=== PATIENT | female | born 1935 | race Caucasian/White ===

== ENCOUNTER 2018-11-17 11:27 | Inpatient (IN) | payer OTHER ==
[~2018-11-17] VITALS: Ht 162.6 cm; Wt 56.6 kg
[2018-11-17 11:29] VITALS: BP 149/77
[2018-11-17 12:28] LABS: ABSOLUTE NEUTROPHILS 8.9 thou/uL (1.4-8.2); BASOPHILS 0.4 % (0.0-2.0); EOSINOPHILS 2.1 % (0.0-3.0); HEMOGLOBIN 14.1 gm/dL (12.0-15.0); LYMPHOCYTES 24.5 % (24.0-44.0); MCH 31.9 pg (26.0-34.0); MCHC 34.4 g/dL (28.0-37.0); MCV 92.6 fL (80.0-100.0); MONOCYTES 5.1 % (1.0-8.0); PLATELET COUNT 275 thou/uL (150-400); POLYS 67.9 % (36.0-66.0); RBC 4.43 mil/uL (4.20-5.00); WBC 13.1 thou/uL (4.0-11.0)
[2018-11-17 12:36] LABS: CALCIUM 9.7 mg/dL (8.5-10.1); CREATININE 1.2 mg/dL (0.6-1.0); POTASSIUM 4.1 mmol/L (3.5-5.1)
[2018-11-17 12:42] LABS: ALBUMIN 3.8 g/dL (3.4-5.0); TOTAL BILIRUBIN 0.3 mg/dL (<0.1-1.0); TOTAL PROTEIN 7.8 g/dL (6.4-8.2)
[2018-11-17 13:09] LABS: URINE BILIRUBIN NEGATIVE (Negative); URINE BLOOD NEGATIVE (Negative); URINE CLARITY CLEAR; URINE COLOR YELLOW; URINE GLUCOSE-RANDOM* NEGATIVE (Negative); URINE KETONES NEGATIVE (Negative); URINE NITRITE-REFLEX NEGATIVE (Negative); URINE PROTEIN (DIPSTICK) NEGATIVE (Negative); URINE SPECIFIC GRAVITY 1.015 (1.005-1.035); URINE UROBILINOGEN 0.2 E.U./dl (0.2-1.0)
[2018-11-17 13:10] LABS: URINE LEUKOCYTES-REFLEX 1+ (Negative)
[2018-11-17 13:22] LABS: CASTS None Seen /LPF (None Seen); CRYSTALS None Seen /LPF (None Seen); SQUAMOUS 0-3 Few /LPF (0-3); URINE RBC None Seen /HPF (0-2)
[2018-11-17 13:23] LABS: BACTERIA-REFLEX 1-9 Few /HPF (None Seen); URINE WBC-REFLEX 6-15 Few /HPF (0-5)
[2018-11-17 16:14] VITALS: BP 160/76
[2018-11-17 16:32] VITALS: BP 141/70
[2018-11-17 18:12] VITALS: BP 145/107
--- NOTE | 2018-11-17 19:00 | NUR ---
PT ARRIVED TO FLOOR FROM ED AT 1710 IN STABLE CONDITION.ADMISSION HISTORY, ASSESSMENT AND CARE PALN COMPLETED.DINNER GIVEN AND PT ATE 100% OF MEAL SERVED.NO VERBAL C/O.WILL CONTINUE TO MONITOR.
[2018-11-17 19:15] VITALS: BP 128/73
--- NOTE | 2018-11-18 01:22 | NUR ---
PT ALERT AND ORIENTED.UP TO THE BATHROOM USING WALKER, AMBULATES FINE WITH SBA. USES 02/2L/NC AT NOC PER BASELINE. TOLERABLE PAIN TO R SIDE THAT IS RADIATING.AFEBRILE.
[2018-11-18 04:30] VITALS: BP 119/84
[2018-11-18 08:22] VITALS: BP 136/93
--- NOTE | 2018-11-18 08:29 | NUR ---
ASSESMENT COMPLETED. VSS. C/O PAIN MANAGED BY MEDS ORDERED. SOA- [address] NO NV. UP WITH STAND BY. PT STABLE WHEN UP. PT RESTING IN BED AT THIS TIME. WILL CONT. TO MONITOR.
[2018-11-18] MEDS ORDERED: MELATONIN10 M2 PO (11:09)
[2018-11-18] MEDS ORDERED: SYNTHROID25 MC1 PO (11:10)
[2018-11-18] MEDS ORDERED: DIGOXIN125 MCG PO (11:10)
[2018-11-18] MEDS ORDERED: REMERON15 MG PO (11:10)
[2018-11-18] MEDS ORDERED: DILTIAZEM ER120 M1 PO (11:11)
[2018-11-18] MEDS ORDERED: LUTEIN PO (11:13)
[2018-11-18] MEDS ORDERED: PRESERVISION PO (11:13)
[2018-11-18] MEDS ORDERED: XALATAN2.5 ML OPHTHALMIC (11:14)
[2018-11-18] MEDS ORDERED: ANTIVERT25 MG PO (11:14)
[2018-11-18] MEDS ORDERED: ELIQUIS5 MG PO (11:15)
--- NOTE | 2018-11-18 13:22 | NUR ---
INITIAL ASSESSMENT: Pt evaluated for d/c planning needs. Reviewed chart and spoke with nurse and pt. Pt is alert and oriented. Pt was hospitalized at [facility] recently and went to [facility] for 2 weeks to receive IVAB. Pt had since returned home. Pt said she had home health years ago after hospitalization, but does not recall name of agency used. Pt has walker, cane, oxygen and nebulizer at home. Pt plans on returning home on d/c from hospital. Will remain available to assist as needed.
[2018-11-18 15:50] VITALS: BP 158/77
[2018-11-18 16:06] LABS: BE(vivo) -1.7 mmol/L (-2 to +3); HCO3 23.1 mmol/L (22.0-26.0); PCO2 39.6 mmHg (35.0-45.0); pH 7.384 (7.360-7.450); sO2 97.7 % (92.0-98.0)
[2018-11-18 16:11] LABS: ABSOLUTE NEUTROPHILS 7.7 thou/uL (1.4-8.2); BASOPHILS 0.6 % (0.0-2.0); EOSINOPHILS 3.4 % (0.0-3.0); HEMATOCRIT 40.2 % (37.0-47.0); HEMOGLOBIN 13.4 gm/dL (12.0-15.0); LYMPHOCYTES 27.2 % (24.0-44.0); MCH 31.5 pg (26.0-34.0); MCHC 33.5 g/dL (28.0-37.0); MONOCYTES 4.9 % (1.0-8.0); POLYS 63.9 % (36.0-66.0); RBC 4.28 mil/uL (4.20-5.00); RDW 14.3 % (10.5-14.5); WBC 12.9 thou/uL (4.0-11.0)
[2018-11-18 16:30] LABS: ALBUMIN 3.2 g/dL (3.4-5.0); ANION GAP 11 mmol/L (7-16); BUN 14 mg/dL (7-18); CALCIUM 8.7 mg/dL (8.5-10.1); CHLORIDE 104 mmol/L (98-107); CO2 25 mmol/L (21-32); CREATININE 0.8 mg/dL (0.6-1.0); GLUCOSE 130 mg/dL (74-106); MAGNESIUM 1.7 mg/dL (1.8-2.4); POTASSIUM 4.2 mmol/L (3.5-5.1); SGOT 15 U/L (15-37); SGPT 12 U/L (30-65); SODIUM 140 mmol/L (136-145); TOTAL BILIRUBIN 0.3 mg/dL (<0.1-1.0); TOTAL PROTEIN 6.9 g/dL (6.4-8.2); TROPONIN-I <0.06 ng/mL (<0.06)
[2018-11-18 16:32] LABS: PLATELET COUNT 252 thou/uL (150-400)
--- NOTE | 2018-11-18 16:45 | EKG ---
[address] [address] ELECTROCARDIOGRAM REPORT Name: LETHA BRAN Room #: 427-P ADM IN M.R.#: [id number] ������������������ Admission: 11/17/18 ������������������ Attend Phys: Micky Rodriguez Discharge: ������������������ Date of : 34 Report #: [id number] ����������������������������������������������������������������� [id number] THIS REPORT FOR: //name// [facility] Test Date: 2018-11-18 Test Time: 16:08:41 Pat Name: LETHA BRAN Department: Room: 427 P Gender: F Tree Inspector: Micky THOMPSON : 1935 Requested By: Gumaro Gtz Order Number: [id number] MD: Murtaza Pace Measurements Intervals [place] Rate: 62 P: OR: QRS: -33 QRSD: 99 T: -17 QT: 409 QTc: 416 Interpretive Statements Atrial fibrillation Left axis deviation Anteroseptal infarct, age indeterminate No previous ECG available for comparison Electronically Signed On 11-18-2018 16:45:17 CDT by Murtaza Pace [email or web address] ��������������������������������������������� <ELECTRONICALLY SIGNED> ���������������������������������������� By: Murtaza Pace MD ��������������������������������������������� 11/18/18 1645 1608 1608 Murtaza Pace MD /JIMY
--- NOTE | 2018-11-18 18:33 | NUR ---
PATIENT TRANSFERRED FROM 427 TO SICU 226, PATIENT MADE COMFORTABLE, ORIENTED TO UNIT AND STAFF, SBA WITH WALKER, RAC INTACT WITH SMALL BLOOD AT SITE, SCD SLEEVES IN PLACE, REQUESTED PAIN MED WHEN DUE, PERSONAL BELONGINGS AND CALL LIGHT IN REACH, WILL CONTINUE TO MONITOR
[2018-11-18 18:49] VITALS: BP 166/86
--- NOTE | 2018-11-19 03:13 | NUR ---
PATIENT ALERT AND ORIENTED X4. SLIGHTLY [place]. UP ADLIB IN ROOM. MEDICATED FOR ABDOMINAL PAIN WITH GOOD RESULTS. PATIENT HAS BEEN NPO SINCE 2358 ON 11/18/18 FOR LAP. APPENDECTOMY SCHEDULED FOR TODAY. AM LABS WILL BE DRAWN. RESTING QUIETLY AT TIME OF NOTE.
[2018-11-19 06:33] LABS: HEMATOCRIT 37.8 % (37.0-47.0); HEMOGLOBIN 12.5 gm/dL (12.0-15.0); MCH 31.1 pg (26.0-34.0); MCHC 33.2 g/dL (28.0-37.0); MCV 93.5 fL (80.0-100.0); RBC 4.04 mil/uL (4.20-5.00); RDW 14.2 % (10.5-14.5); WBC 13.8 thou/uL (4.0-11.0)
[2018-11-19 06:44] LABS: CREATININE 0.8 mg/dL (0.6-1.0); MAGNESIUM 1.5 mg/dL (1.8-2.4); POTASSIUM 3.9 mmol/L (3.5-5.1)
[2018-11-19 07:06] VITALS: BP 145/60
[2018-11-19 10:31] VITALS: BP 149/98
--- NOTE | 2018-11-19 15:24 | NUR ---
ASSUMED CARE AT 0700, SHIFT ASSESSMENT DONE, VSS. NPO SINCE LAST NIGHT, WENT TO SURGERY FOR LAP APPENDECTOMY WITH DR MARTÍNEZ. CAME BACK FROM SURGERY AT 1100, REPORTED PAIN, PRN PAIN MEDS GIVEN WITH SOME RELIEF. BILATERAL SCDs ON. APPETITE POOR, SLEEPING THIS AFTERNOON. WILL CONTINUE TO ASSESS AND ASSIST WITH ADLs NEEDED.
[2018-11-19 19:36] VITALS: BP 130/76
--- NOTE | 2018-11-20 03:40 | NUR ---
PATIENT ALERT AND ORIENTED X4. UP WITH ONE ASSIST AND WALKER TO BATHROOM. INCISIONS TO ABDOMEN FANI. MEDICATED FOR PAIN USING IVP MEDICATION. THIS NURSE SPOKE WITH PATIENT ABOUT TAKING PO MEDS, HOWEVER, SHE STATED THAT IT DOES NOT WORK GOOD FOR HER. EXPLAINED THE PROCESS FOR SWITCHING OVER TO THE PO PAIN MEDICATION BEFORE SHE LEAVES. PATIENT IS IN AGREEMENT TO TRY IT DURING THE DAY. NO DRAINAGE NOTED FROM INCISIONS. WILL MONITOR. RESTING QUIETLY.
[2018-11-20 06:29] LABS: HEMATOCRIT 37.5 % (37.0-47.0); HEMOGLOBIN 12.6 gm/dL (12.0-15.0); MCH 31.3 pg (26.0-34.0); MCHC 33.7 g/dL (28.0-37.0); MCV 92.9 fL (80.0-100.0); RBC 4.03 mil/uL (4.20-5.00); RDW 14.1 % (10.5-14.5); WBC 13.5 thou/uL (4.0-11.0)
[2018-11-20 06:44] LABS: CALCIUM 8.9 mg/dL (8.5-10.1); CREATININE 0.9 mg/dL (0.6-1.0); MAGNESIUM 1.4 mg/dL (1.8-2.4); POTASSIUM 4.3 mmol/L (3.5-5.1)
[2018-11-20 07:25] VITALS: BP 150/75
--- NOTE | 2018-11-20 18:13 | NUR ---
PT IN STABLE CONDITION THIS SHIFT; NO S/SX OF ACUTE DISTRESS; PT IS AX0 X 4; PT HAS BEEN ENCOURAGED TO ASK FOR ASSISTANCE W/ABULATION D/T POOR VISION; PT GIVEN TRAMADOL 50MG Q4H FOR C/O PAIN, 4-5 AVERAGE; PT UP TO CHAIR THIS SHIFT; PT USES WALKER FOR ASSISTANCE W/AMBULATION; FOLLOWING POC ORDERED; WILL CONT. TO MONITOR
[2018-11-20 19:31] VITALS: BP 186/96
--- NOTE | 2018-11-21 04:57 | NUR ---
PATIENT ALERT AND ORIENTED X4. UP WITH WALKER TO BATHROOM. BED ALARM ON DUE TO LIMITED SIGHT. MEDICATED WITH TRAMADOL FOR PAIN WITH GOOD RELIEF AFTER ADMINISTERING 100MG INSTEAD OF 50MG. C/O CONSTIPATION AND WAS GIVEN MAG CITRATE ON THE AM SHIFT, HOWEVER, NO RESULTS AT THIS TIME. PATIENT REFUSED HER DOCUSATE SODIUM FROM THIS NURSE. INCISIONS TO ABDOMEN NOVELTY TWISTER OPERATOR WITHOUT DRAINAGE. ELEVATED BLOOD PRESSURE AT BEGINING OF SHIFT, HOWEVER, DUE TO EXERTION. RESTING QUIETLY. WILL MONITOR.
[2018-11-21 06:38] LABS: HEMATOCRIT 40.2 % (37.0-47.0); HEMOGLOBIN 13.5 gm/dL (12.0-15.0); MCH 31.4 pg (26.0-34.0); MCHC 33.5 g/dL (28.0-37.0); MCV 93.8 fL (80.0-100.0); PLATELET COUNT 323 thou/uL (150-400); RBC 4.29 mil/uL (4.20-5.00); RDW 14.4 % (10.5-14.5); WBC 20.5 thou/uL (4.0-11.0)
[2018-11-21 07:57] VITALS: BP 141/91
[2018-11-21 08:13] LABS: ABSOLUTE NEUTROPHILS 15.4 thou/uL (1.4-8.2)
[2018-11-21 08:14] LABS: ANISOCYTOSIS SLIGHT
--- NOTE | 2018-11-21 09:02 | HC ---
[facility] [address] [address] CONSULTATION Name: LETHA BRAN Room #: 226-P ADM IN M.R.#: [id number] Admission: 11/17/18 ������������������ Attend Phys: Micky Rodriguez Discharge: ������������������ Date of : 34 Report #: [id number] THIS REPORT FOR: //name// CC: Damaso Garner Marlen Elliott DATE OF SERVICE: 11/17/2018 REFERRING PROVIDER: Damaso Garner MD. REASON FOR CONSULTATION: Right lower quadrant abdominal pain. HISTORY OF PRESENT ILLNESS: The patient is an 83-year-old female who is well known to me as she initially presented to [facility] with right lower quadrant abdominal pain with findings of an acute appendicitis. Unfortunately, the patient was on Eliquis at that time and had just taken a dose prior to presentation to the Emergency Room. The patient was therefore treated conservatively with antibiotics and discharged home to rehabilitation. The patient did well throughout her rehab course and repeat CT scans showed a near complete resolution of her inflammatory process in the right lower quadrant. The patient was being evaluated as an outpatient by Cardiology and Pulmonology to prepare her to proceed to the operating room in the near future for a laparoscopic interval appendectomy. Unfortunately, the patient developed recurrent right lower quadrant abdominal pain for which she presented back to [facility] Emergency Room for evaluation. The patient did have a low level leukocytosis with a white blood cell count of 13,[address] scan showed cholelithiasis with a minimally prominent appendix without inflammatory change. As the patient's pain was continuing to be unrelenting, she was admitted for symptomatic control and I am asked to evaluate from a surgical standpoint. PAST MEDICAL HISTORY: COPD, atrial fibrillation, prior right hip and knee replacements, essential tremor and macular degeneration. HOME MEDICATIONS: Synthroid, Remeron, latanoprost eye drops, Cardizem, digoxin. ALLERGIES: TO NAPROXEN AND OXYCODONE. SOCIAL HISTORY: The patient currently does not utilize tobacco, alcohol or illicit drugs. FAMILY HISTORY: Reviewed and noncontributory. REVIEW OF SYSTEMS: GENERAL: The patient denies nocturnal fevers or chills. HEENT: No change in vision, change in hearing. [facility] [address] [place] [address] CONSULTATION Name: LETHA BRAN Room #: 226-P [facility] IN .R.#: [id number] Admission: 11/17/18 ������������������ Attend Phys: Micky Rodriguez Discharge: ������������������ Date of : 34 Report #: [id number] NECK: No swelling or difficulty swallowing. HEART: No chest pain or palpitations. LUNGS: No cough or shortness of breath. ABDOMEN: Abdominal pain, but no nausea or vomiting. GENITOURINARY: No dysuria or hematuria. ENDOCRINE: No polyuria or polydipsia. HEMATOLOGIC: No history of bleeding or easy bruising. EXTREMITIES: No history of weakness or limited range of motion. NEUROLOGIC: No history of syncope or near syncopal episodes. SKIN AND INTEGUMENT: No history of abnormal lesions or moles. PSYCHIATRIC: No history of anxiety or depression. PHYSICAL EXAMINATION: VITAL SIGNS: Temperature 36.7, pulse 66, respirations 14, blood pressure 149/77. She weighs 124 pounds. GENERAL: Alert and oriented, in no acute distress. HEENT: Normocephalic, atraumatic. Pupils equal, round, reactive to light. NECK: Supple, without lymphadenopathy. Trachea midline. HEART: Irregularly irregular rhythm. LUNGS: Clear to auscultation bilaterally. ABDOMEN: Soft, nondistended, minimally tender in the right lower quadrant to deep palpation, but no guarding, rebound or peritoneal signs or symptoms. GENITOURINARY: Normal external female genitalia. EXTREMITIES: No clubbing, cyanosis or edema. NEUROLOGIC: Cranial nerves 2-12 are grossly intact. PSYCHIATRIC: Normal mood and affect. SKIN AND INTEGUMENT: No abnormal lesions or moles. LABORATORY AND X-RAY DATA: CBC shows white blood cell count 13,100, hemoglobin 14.1, platelets 275,000. Creatinine 1.2. Lactate was minimally elevated at 2.1. Liver function enzymes normal. Urinalysis positive for urinary tract infection with 6-15 white blood cells and 1-9 bacteria with 1+ leukocyte esterase. CT scan of the abdomen and pelvis as per HPI shows minimally prominent appendix without inflammation and cholelithiasis. ASSESSMENT AND PLAN: An 83-year-old female with a near 3-month history of acute appendicitis treated conservatively, who is being evaluated for interval appendectomy as an outpatient. As the patient has now been admitted for intractable pain without findings of a repeat acute appendicitis, the patient will be continued with supportive care. We will continue to hold her Eliquis as her last dose was Wednesday afternoon at 4:00 p.m. and I will prepare her to go the operating room in the near future for a laparoscopic interval appendectomy. Risks, benefits and alternatives of that procedure have been discussed with the patient in detail and she agrees to proceed as outlined. [address] [address] CONSULTATION Name: LETHA BRAN Room #: 226-P ADM IN M.R.#: [id number] Admission: 11/17/18 ������������������ Attend Phys: Micky Rodriguez Discharge: ������������������ Date of : 34 Report #: [id number] I sincerely appreciate this consult. We will follow along and leave any further recommendations in the patient's chart as appropriate. ��������������������������������������������� <ELECTRONICALLY SIGNED> ���������������������������������������� By: Coreen Ureña MD, FACS ��������������������������������������������� 11/21/18 0902 1710 1352 Coreen Ureña MD, FACS /nt
--- NOTE | 2018-11-21 09:02 | O ---
[facility] [address] [address] OPERATIVE REPORT Name: LETHA BRAN Room #: 226-P ADM IN M.R.#: [id number] Admission: 11/17/18 ������������������ Attend Phys: Micky Rodriguez Discharge: ������������������ Date of : 34 Report #: [id number] THIS REPORT FOR: //name// CC: Damaso Garner Marlen Hollinser DATE OF SERVICE: 11/19/2018 PREOPERATIVE DIAGNOSIS: Chronic appendicitis. POSTOPERATIVE DIAGNOSIS: Chronic appendicitis. PROCEDURE PERFORMED: Laparoscopic interval appendectomy. SURGEON: Coreen Ureña M.D. MARINE INSULATOR: Medical student. ANESTHESIA: General endotracheal anesthesia. ESTIMATED BLOOD LOSS: Minimal (less than 5 mL). COMPLICATIONS: None appreciated. SPECIMENS: Appendix to pathology. INDICATIONS: The patient is an 83-year-old female who was seen nearly 3 months ago with an acute appendicitis; however, she was on Eliquis and as such, she was treated conservatively with antibiotic therapy. The patient has improved over the past, however, was recently readmitted with recurrent right lower quadrant abdominal pain and imaging findings devoid of new inflammation. Nonetheless, as she is 3 months out from her initial episode, indication was for laparoscopic interval appendectomy today. DESCRIPTION OF PROCEDURE: After explaining the risks, benefits and alternatives of the procedure with the patient in detail in the preoperative holding area and obtaining written consent, the patient was brought to the operating room and placed supine on the operating room table. After conducting a thorough time-out procedure, verifying correct patient and procedure, the patient was given general endotracheal anesthesia. Once adequate anesthesia was obtained, her SCDs were hooked up to pneumatic compression device and she was given a preoperative dose of antibiotics in line with the SCIP protocol. The patient's abdomen was prepped and draped in the standard surgical sterile fashion. A 5 mL of 0.5% Marcaine with epinephrine was used to anesthetize the skin in the infraumbilical location. A #15 bladed scalpel was used to create a 1-cm transverse skin incision at this location. A 12-mm Visiport was placed over [address] [address] OPERATIVE REPORT Name: LETHA BRAN Room #: 226-P [facility] IN ..#: [id number] Admission: 11/17/18 ������������������ Attend Phys: Micky Rodriguez Discharge: ������������������ Date of : 34 Report #: [id number] 0-degree 5-mm laparoscope and was introduced through this incision site. Once intra-abdominal placement was verified visually, the obturator for the trocar and laparoscope were both removed and the abdomen was insufflated to 15 mmHg using carbon dioxide gas. The laparoscope was changed to a 5-mm 30-degree laparoscope, which was reintroduced through this trocar. The entire abdomen was evaluated to ensure no injury upon entry. I now placed two 5-mm working trocars, one in the suprapubic location and one in the left lower quadrant. Both were placed under direct vision after anesthetizing the skin at each location with 5 mL of 0.5% Marcaine with epinephrine, I had created small skin nicks using a #15 bladed scalpel. The patient was now placed in Trendelenburg position with right side elevated and the dilated, elongated and hyperinjected appendix was easily identified and elevated. A window was made in the mesoappendix near the base using a [place] dissector. The laparoscope was removed, changed the left lower quadrant trocar. The [place] 45 mm stapler with a blue load was entered into the abdomen through the infraumbilical trocar and one blade of the stapler was passed through the window in the mesoappendix. The stapler was then clamped and fired, completely transecting the appendix at its healthy base. The stapler was removed and the Harmonic scalpel was used to transect the mesoappendix for complete hemostasis. The EndoCatch bag was then placed in the infraumbilical trocar and the specimen was placed within it under direct vision. The pursestring suture was drawn and specimen was removed and the abdomen under direct vision with ease. I then closed the infraumbilical fascial incision using 0 PDS suture on the Carlos-Malini suture passer device and tied this down under direct vision to ensure I did not catch a loop of bowel or omentum in the suture repair. Evaluation of the staple line showed that it was seated nicely along the base of the appendix at the level of the cecum with complete hemostasis. There was no bleeding from the mesoappendix. No other abnormality was identified within the abdominal domain. The abdomen was fully desufflated. All trocars removed under direct vision. A 4-0 Monocryl was used in a standard subcuticular fashion for all skin incisions and Dermabond glue was applied to all skin wounds. At the end of the procedure, all instrument, needle and sponge counts were correct. The patient tolerated the procedure without incident, was awakened in the operating room and transitioned to the recovery room in stable condition, with no apparent complications. ��������������������������������������������� <ELECTRONICALLY SIGNED> ���������������������������������������� By: Coreen Ureña MD, FACS ��������������������������������������������� 11/21/18 0902 0928 1213 Coreen Ureña MD, FACS /nt
--- NOTE | 2018-11-21 12:02 | NUR ---
ASSUMED CARE OF PATIENT THIS MORNING. PATIENT IS A&OX4. SHE GETS UP SBA W/WALKER. PATIENT TOOK HER MORNING MEDICATIONS THIS MORNING AND TOLERATED THEM. SHE HAD A BOWEL MOVEMENT THIS MORNING. SHE HAS MACULAR DEGENERATION AND HAS BEEN INSTRUCTED TO CALL FOR ASSIST WHEN AMBULATING. SHE ALSO HAS TREMORS. PATIENT RECEIVED PAIN MEDICATION THIS MORNING RATED PAIN 4/10 WITHOUT MOVEMENT, 7/10 WITH MOVEMENT. PATIENT RECEIVED PT/OT THIS MORNING. SHE IS CURRENTLY LYING IN BED WITH CALL LIGHT WITHIN REACH.
--- NOTE | 2018-11-21 12:04 | NUR ---
SHONNA reviewed chart and spoke with nursing and attending physician. Pt was transferred to [facility] from and is progressing towards goals for discharge. Pt is s/p lap appendectomy. SHONNA met with pt at bedside to discuss discharge plan: home with HH v. post-acute placement. Pt states she feels strong enough to return Home with HH. Options provided for HH agencies. No preference voiced. SW confirmed pt's home address and phone number. Pt's PCP is Dr. Marlen Elliott. SHONNA notified intake at [facility] of new HH referral. SHONNA is following to assist as needed with discharge planning.
--- NOTE | 2018-11-21 15:52 | NUR ---
I AGREE WITH NURSING ASSESSMENT DONE BY CARSON/ANGEL.
[2018-11-21 17:40] LABS: URINE BILIRUBIN NEGATIVE (Negative); URINE BLOOD TRACE (Negative); URINE CLARITY CLEAR; URINE COLOR YELLOW; URINE GLUCOSE-RANDOM* NEGATIVE (Negative); URINE KETONES NEGATIVE (Negative); URINE LEUKOCYTES 1+ (Negative); URINE NITRITE NEGATIVE (Negative); URINE PROTEIN (DIPSTICK) NEGATIVE (Negative); URINE UROBILINOGEN 0.2 E.U./dl (0.2-1.0)
[2018-11-21 17:55] LABS: CASTS None Seen /LPF (None Seen); CRYSTALS None Seen /LPF (None Seen); SQUAMOUS 0-3 Few /LPF (0-3); URINE RBC 3-10 Few /HPF (0-2)
[2018-11-21 17:56] LABS: BACTERIA None Seen /HPF (None Seen); WBC CLUMPS Few (None Seen)
[2018-11-21 20:42] VITALS: BP 140/85
--- NOTE | 2018-11-22 03:57 | NUR ---
Assumed pt. care at 1900. Remains A&Ox4; swallows meds whole w/o difficulty. Remains cont. B&B; ambulates to BR w/ standby asst and walker; gait steady. Remains on IVABT/post appendectomy; no adverse reactions noted. RAC SL infused ABT/flushed w/ NS w/o difficulty. 3 incisions to abd. noted; no redness/drainage noted to sites. Pt has SCDs intact to BLEs. Remains on fall precautions. Denies pain or discomfort, at this time. No s/s of acute distress noted. Pt. asleep in bed w/ call light/desired belongings within reach. Bed/chair alarm intact. PO fluids encouraged. Will continue to monitor.
[2018-11-22 06:36] LABS: ABSOLUTE NEUTROPHILS 10.5 thou/uL (1.4-8.2); BASOPHILS 0.6 % (0.0-2.0); EOSINOPHILS 3.1 % (0.0-3.0); HEMATOCRIT 36.3 % (37.0-47.0); HEMOGLOBIN 12.3 gm/dL (12.0-15.0); LYMPHOCYTES 20.4 % (24.0-44.0); MCH 31.5 pg (26.0-34.0); MCHC 33.9 g/dL (28.0-37.0); PLATELET COUNT 278 thou/uL (150-400); POLYS 69.9 % (36.0-66.0); RBC 3.91 mil/uL (4.20-5.00); RDW 14.1 % (10.5-14.5)
[2018-11-22 06:46] LABS: CALCIUM 8.9 mg/dL (8.5-10.1); CREATININE 0.8 mg/dL (0.6-1.0); MAGNESIUM 1.6 mg/dL (1.8-2.4); POTASSIUM 3.7 mmol/L (3.5-5.1)
[2018-11-22 07:20] VITALS: BP 144/87
[2018-11-22 09:53] VITALS: BP 144/87
--- NOTE | 2018-11-22 12:17 | NUR ---
ASSUMED CARE OF PATIENT THIS MORNING. PATIENT IS A&OX4. SHE GETS UP WITH SBA AND WALKER. PATIENT VOIDS PER TOILET. SHE HAS RECEIVED TRAMADOL FOR ABDOMINAL SURGICAL SITE PAIN THIS MORNING WITH PARTIAL PAIN RELIEF. SHE WORKED WITH THERAPY THIS MORNING. SHE HAS HAD 2 BOWEL MOVEMENTS TODAY. PATIENT REFUSED HER STOOL SOFTENER THIS MORNING. SHE WILL POSSIBLY BE DISCHARGED TOMORROW TO A FACILITY. PATIENT IS CURRENTLY LYING IN BED WITH CALL LIGHT WITHIN REACH. SHE CALLS OUT APPROPRIATELY FOR ASSISTANCE.
--- NOTE | 2018-11-22 12:54 | NUR ---
DP SENT REFERRAL TO [facility], REQUESTED THEY SUBMIT FOR AUTHORIZATION, DISCHARGE TOMORROW.
--- NOTE | 2018-11-22 12:56 | NUR ---
SW reviewed chart and spoke with nursing and attending physician. Pt is progressing towards goals for discharge. Attending physician recommended SNF placement to pt earlier today. SHONNA met with pt at bedside to provide update and discuss discharge plan. Pt states she wants a referral to be sent to [facility] SN[facility], as she has been there in the past. SW explained need for insurance authorization. Pt verbalized understanding and states last time, insurance denied and a peer to peer was done and denial was overturned. student services dean faxed referral to [facility]. Discharge anticipated for tomorrow. SHONNA is following to assist as needed with discharge planning.
[2018-11-22 21:07] VITALS: BP 137/80
[2018-11-22 21:26] VITALS: BP 137/80
--- NOTE | 2018-11-23 04:01 | NUR ---
Assumed pt. care at 1900. Pt remains A&Ox3; swallows meds whole w/o difficulty. Remains cont. B&B; ambulates to BR w/ standby asst and walker; gait steady. Remains on IVABT/ post appendectomy; no adverse reactions noted. RAC SL noted; infused ABT/flushed w/ NS w/o difficulty. 3 incisions to abd noted and remain C/D/I, at this time. Pt refused SCDs. Pt has no c/o pain or discomfort. No s/s of acute distress noted. Remains on fall precautions. Pt asleep in bed w/ call light/desired belongings within reach. Bed/chair alarm intact. PO fluids encouarged. Will continue to monitor.
[2018-11-23 09:00] VITALS: BP 124/74
--- NOTE | 2018-11-23 09:05 | PATH ---
[facility] [address] [place] [address] PATHOLOGY RPT PROCEDURE Name: NISREEN ADAIR Room #: 226-P [facility] IN M.R.#: [id number] ������������������ Admission: 11/17/18 ������������������ Date of : 34 Discharge: Report #: [id number] Path Case #: [id number] [facility] Accession Number: [id number] . 01 Material submitted: . appendix - APPENDIX . 01 Clinical history: . Acute appendicitis . 02 Diagnosis: Appendix, appendectomy: - Mild acute inflammation. - Impacted lumen. - Fibrous obliteration of the tip. (IUV/db; 11/22/2018) LBQ/11/22/2018 . 02 Electronically signed: . Natalia Ivey MD, Pathologist NPI- [id number] . 01 Gross description: . Received in formalin labeled "Nisreen Adair appendix," is an appendix measuring 5.9 cm in length by 1.0 cm in diameter with a moderate amount of attached mesoappendix measuring up to 2.1 cm in thickness. The appendix serosa is smooth to shaggy and pale paige to focally hemorrhagic in appearance, displaying attached paige possible adhesions. The proximal margin is closed with a linear staple line; this area is inked black. Serial sectioning reveals a pinpoint to dilated lumen ranging from 0.1 to 0.6 cm in diameter and filled with paige-brown, friable fecal material. No lesions or nodules are noted grossly. The proximal margin, bisected distal tip and additional graphic art sales representative sections are submitted in cassette A1. (DAC; 11/21/2018) XDC/XDC . 02 Pathologist provided ICD-10: K35.80 . 02 CPT . 200897 Specimen Comment: A courtesy copy of this report has been sent to Specimen Comment: [phone], . Specimen Comment: Report sent to / DR SLATER Specimen Comment: A duplicate report has been generated [place] [address] PATHOLOGY RPT PROCEDURE Name: NISREEN ADAIR Montrell Room #: 226-P [facility] IN M.R.#: [id number] ������������������ Admission: 11/17/18 ������������������ Date of : 34 Discharge: Report #: [id number] Path Case #: [id number] Performed at: 01 [facility] Lisa Pace [address], [place], [place] [id number] MD Regis Romero MD Phone: [phone] Performed at: [address] [id number] MD Natalia Ivey MD Phone: [phone]
--- NOTE | 2018-11-23 11:53 | NUR ---
SHONNA reviewed chart and spoke with nursing and attending physician. Pt is progressing towards goals for discharge. SHONNA faxed clinical/therapy updates to [facility] for review. SHONNA updated Prachi at [facility]. Info to be submitted to insurance for review. Physician states he will do the peer to peer with insurance if SNF authorization is denied. SHONNA is following to assist as needed with discharge planning.
--- NOTE | 2018-11-23 12:57 | NUR ---
ASSUMED PATIENT AND CARES AT 0715, PATIENT IN BED WOKE WATCHING TV, A&OX4, RECEIVED PAIN MED PRIOR TO SHIFT CHANGE, PAIN AT THIS TIME 12/09, C/O NAUSEA AND DIZZINESS RECEIVING PRN MEDS PIOR TO SHIFT CHANGE, RAC SALINE LOCK RECEIVING ABT THERAPY Q12, SBA WITH WALKER, ABD INCISION CLOSED WITH DERMABOND C/D/I, FALL PRECAUTIONS IN PLACE, PERSONAL BELONGINGS AND CALL LIGHT IN REACH, WILL CONTINUE TO MONITOR
--- NOTE | 2018-11-23 16:52 | NUR ---
PATIENT REQUIRED 1.5L/NC O2 THIS MORNING, PATIENT WORE O2 ON AND OFF THIS SHIFT, AT THIS TIME O2 SAT 92% ON RA, WILL CONTINUE TO MONITOR
[2018-11-23 19:53] VITALS: BP 164/76
[2018-11-23 22:05] VITALS: BP 164/76
--- NOTE | 2018-11-24 06:46 | NUR ---
Assumed pt. care at 1900. Remains A&Ox3; swallows meds whole w/o difficulty. Remains cont. B&B. Ambulates w/ standby asst and walker; gait steady. Remains on IVABT/ post appendectomy; no adverse reactions noted. RAC SL noted; infused ABT/flushed w/o difficulty. 3 incisions to abd noted; no redness/drainage noted to sites. Remains on fall precautions. Pt. has no c/o pain or discomfort. No s/s of acute distress noted. Pt asleep in bed w/ call light/desired belongings within reach. Bed/chair alarm intact. PO fluids encouraged. Will continue to monitor.
[2018-11-24 09:30] VITALS: BP 125/65
--- NOTE | 2018-11-24 12:54 | NUR ---
SW reviewed chart and spoke with nursing and attending physician. Attending states that pt is ready to d/c home with HH services. No word back from [facility] regarding SNF auth. SW met with pt at bedside to discuss discharge plan. Pt verbalized understanding that insurance will most likely not authorize SNF. Pt is agreeable with discharging home with HH. Pt contacted her family, who are out of town and will be able to pick pt up tomorrow between [id number]. SW offered to arrange transportation home today. Pt states she does not have a way of getting into her house. SW updated attending physician and Director of Case Mgmt. SW updated intake at [facility]. Contact info for [facility] placed in pt's discharge summary. SHONNA is following to assist as needed with discharge planning.
--- NOTE | 2018-11-24 15:01 | NUR ---
ASSUMED PATIENT AND CARES AT 0715, PATIENT INITIALLY ASLEEP IN BED, EASILY AROUSED, PATIENT A&OX4, PAIN 4/10 RECEIVING MEDICATION AT 0620 PRIOR TO SHIFT CHANGE, O2 SAT 84% ON RA, NURSE STARTED O2@2L/NC AND PATIENT UP TO 97%, RAC INTACT WITH FLUID LEAKING AROUND SITE WITH FLUSH, RAC ANCHORED FOR STABILITY AND NEW DRESSING APPLIED, NO EDEMA NOTED, FALL PRECAUTIONS IN PLACE, SBA WITH WALKER, INCISION SITES TO ABD CLOSED WITH DERMABOND C/D/I, PERSONAL BELONGINGS AND CALL LIGHT IN REACH, WILL CONTINUE TO MONITOR
--- NOTE | 2018-11-25 04:49 | NUR ---
ASSUMED CARE OF PATIENT AT 1900. VSS, HR TACHY AT 110'S. ASSESSMENT COMPLETED AT 2150 AND IS DOCUMENTED. LAP SITES REMAIN WELL APPROXIMATED WITH DERMABOND INTACT. BRUISING NOTED TO ABD. PRN TRAMADOL GIVEN FOR C/O ABD PAIN WITH DESIRED EFFECT ACHIEVED. NO C/O N/V THIS SHIFT. RIGHT AC IV PATENT AND SALINE LOCKED. IV ABX INFUSED WITHOUT COMPLICATION. PT TOLERATED WELL. PT CURRENTLY SLEEPING SOUNDLY IN BED IN NO ACUTE DISTRESS. BED LOCKED AND IN LOWEST POSITION. CALL LIGHT WITHIN REACH. TM.
[2018-11-25 07:59] VITALS: BP 163/81
[2018-11-25 09:35] VITALS: BP 163/81
--- NOTE | 2018-11-25 11:55 | NUR ---
ASSUMED CARE OF PATIENT THIS MORNING. PATIENT IS A&OX4. SHE GETS UP W/SBA AND WALKER WHEN AMBULATING. PATIENT COMPLAINS OF PAIN WITH MOVEMENT OR ACTIVITY. SHE HAS BEEN DESATING AND NOW IS WEARING 2L OF O2. SHE WILL BE DISCHARGING HOME WITH THIS AFTERNOON. PATIENT WILL GO HOME WITH OXYGEN AND WILL HAVE HOME HEALTH. PATIENT'S IV HAS BEEN REMOVED. SHE IS CURRENTLY SITTING ON SIDE OF BED WITH CALL LIGHT WITHIN REACH.
[2018-11-25] MEDS ORDERED: OXYGEN MISCELL (12:03)
--- NOTE | 2018-11-25 12:41 | NUR ---
PATIENT LEFT THE UNIT AT APPROX 1235. IV REMOVED. DISCHARGE INSTRUCTIONS REVIEWED WITH PATIENT AND SON. PATIENT SIGNED IN AGREEMENT. [employer] [employer] PICKED PATIENT UP WITH BELONGINGS AND WHEELED TO MAIN ENTRANCE FOR DEPARTURE.
--- NOTE | 2018-11-25 13:45 | NUR ---
DISCHARGE NOTE: SHONNA reviewed chart and spoke with nursing and attending physician. SHONNA notified by Prachi at [facility] that they did obtain insurance authorization. However, they do not have a bed available until next Wednesday, 11/29. SHONNA updated attending physician, who met with pt at bedside. Pt chose to return home with services. SHONNA notified intake at [facility]. Rest/exercise oximetry completed. Pt does need 2L with activity. SHONNA faxed clinical info and electronically signed script to [facility]. SHONNA spoke with Nellie in intake to notify of pt's discharge and new orders for O2. Per Nellie, she will coordinate with pt the delivery of portable tanks. Contact info for [facility] placed in pt's discharge summary. Pt's family provided transportation home. Pt did not want to wait for a portable tank to be delivered. SHONNA updated Prachi at [facility], who states she will follow up with pt next week to see how she is doing. No additional SHONNA needs identified at this time, but is available to assist should needs arise.
== END 2018-11-25 12:35 | disposition home health service (06) | DRG 341 ==
LOC: ER 11:27 → 4E 15:42 → EROBS 15:42 → SICU 15:42 → 4E 16:56 → ENTRNSPT 11-18 17:15 → SICU 11-18 17:40 → ENTRNSPT 11-25 12:15 → EDTRNSPTSTS 11-25 12:20 → SICU 11-25 12:35
PROVIDERS: Emergency Medicine; Internal Medicine; ADMIT Family Medicine
PROC: 0DTJ4ZZ Resection of Appendix, Percutaneous Endoscopic Approach (ICD-10-PCS; principal; 2018-11-19)
DX: K36 Other appendicitis (principal); N17.0 Acute kidney failure with tubular necrosis; E43 Unspecified severe protein-calorie malnutrition; N39.0 Urinary tract infection, site not specified; K35.80 Unspecified acute appendicitis; J44.9 Chronic obstructive pulmonary disease, unspecified; Z96.641 Presence of right artificial hip joint; Z96.651 Presence of right artificial knee joint; G25.0 Essential tremor; H35.30 Unspecified macular degeneration; M19.90 Unspecified osteoarthritis, unspecified site; I48.2 Chronic atrial fibrillation; Z60.2 Problems related to living alone; M62.84 Sarcopenia; E83.42 Hypomagnesemia; D72.829 Elevated white blood cell count, unspecified; Z68.21 Body mass index [BMI] 21.0-21.9, adult; Z88.6 Allergy status to analgesic agent; Z88.8 Allergy status to other drugs, medicaments and biological substances; Z87.891 Personal history of nicotine dependence; Z79.899 Other long term (current) drug therapy
CPT/HCPCS: 10084; 15002; 50101; 50249; 50411; 50555; 50558; 50739; 50740; 50962; 51975; 52265; 53307; 54022; 54118; 56525; 56526; 62110; 62900; 70005